=== PATIENT | female | born 1980 | race Caucasian/White ===

== ENCOUNTER → 2017-01-23 | Outpatient (CLI) | payer MEDICAID ==
[~2017-01-23] MED LIST: CLARITIN10 MG PO; IRON TABLETS325 MG PO; MOTRIN 400MG.400 MG PO; PERCOCET 5/3251 EACH PO; PRENATAL 1 PLUS1 TA2 PO; ZOFRAN ODT8 MG PO
[2017-01-23 10:32] LABS: HEMOGLOBIN 13.4 g/dL (12.2-16.2); LYMPH # 1.4 K/mm3 (0.7-4.5); LYMPH % 24.2 % (10-50.0)
[2017-01-23 12:27] LABS: BUN 13 mg/dL (7-18)
[2017-01-23 12:34] LABS: GFR (ESTIMATED) 114 ML/MIN (59-)
== END ==
LOC: LAB 10:08
PROVIDERS: Nurse Practitioner Obstetrics & Gynecology
DX: N39.3 Stress incontinence (female) (male) (principal); Z01.812 Encounter for preprocedural laboratory examination

== ENCOUNTER → 2017-01-25 | Day surgery (SDC) | payer MEDICAID ==
[~2017-01-25] VITALS: Ht 175.3 cm; Wt 70.3 kg
--- NOTE | 2017-01-25 11:24 | Operative Note ---
Procedure/Operative Record Procedure Date of procedure: 01/25/17 Pre-Op Dx: Genuine stress urinary incontinence Post-Op Dx: Genuine stress urinary incontinence Procedure performed: Tension-free vaginal tape Surgeon: Dr. Miguel A Aguero Ui Ux Web Developer(s): None Anesthesia: Mandeep Painter EBL (ml): 250 Clinical note: She is a 36-year-old lady who complains of loss of urine with laughing coughing sneezing. This was demonstrated in my office of the time of urodynamics. As result of that she was offered tension-free vaginal tape. The risks and benefits were discussed the patient prior to surgery. Operative findings: She had a normal-appearing bladder. The ureteric orifices were seen and appeared normal. Operative note: She was taken the operating room where LMA anesthesia was found be adequate. She was prepped and draped in normal sterile fashion in the lithotomy position. I injected approximately 20 mL of 1 percent Xylocaine with epinephrine along the anterior vaginal mucosa and out towards each pubic hairline subcutaneously. I then changed to a spinal needle and injected 0.5 percent ropivacaine in the space of Retzius and under the skin suprapubically. I grasped the vaginal mucosa with Allis clamps starting about a centimeter below the urethral orifice and going down approximately 2-1/2 more centimeters. I made a small incision within the 2 Allises and then grasped the edges of the vaginal mucosa with Allis clamps. Using Metzenbaum scissors I dissected bilaterally to each pubic rami. I then drained the bladder with a catheter and placed an obturator within the bladder. I pulled this to its ipsilateral side and then placed the LEFT side of the tape. I went under the pubic rami, through the urogenital diaphragm and through the space of Retzius and out through the skin. I then inspected the bladder with a 70 degree cystoscope. I noted that the trocar had passed through and through the bladder. I then repositioned the trocar and passed the bladder once again through the space Retzius and out through the skin. At this point in time was noted that the tape had been positioned correct. The bladder was hemostatic. I then pulled the tape through the skin. Similarly on the patient's RIGHT side I passed the trocar under the pubic rami through the urogenital diaphragm, through the space of Retzius and out through the skin. Once again inspected the bladder with a 70 degree cystoscope. The tape was in the correct position. There is no evidence of tape within the bladder. I inspected the other side as well and once again assured that there was no tape or bleeding within the bladder. I then pulled the tape through the skin and cut the trochars off. I grasped the outer sheath of the tension-free vaginal tape and placed a pack a forcep under the tape in the midline. I then pulled off the outer sheeting of the tape. I set tension on the tape. The tape was then cut off at the level of the skin and I lifted the skin so as to bury the tape under the skin. The vaginal mucosa was then closed using interrupted 2-0 Vicryl suture in a mattress fashion. The bladder was then drained. The skin was closed with Dermabond. The patient tolerated the procedure well and was taken to the recovery room in excellent condition. All sponge instrument and needle counts were correct. Estimate a blood loss was approximate 250 mL. Conplications: Tape was passed through and through the bladder then repositioned Specimens: None at 1121
--- NOTE | 2017-01-25 11:29 | Anesthesia Record ---
Anesthesia Record Part I Total IV fluids: 1100 EBL (ml): 250 Urine Output: 0 B/P: 98/59 % SaO2: 96 Pulse: 72 Resps: 16 Temp: 97.4 Patient is: Drowsy, Nasal O2, Stable Stable to PACU at: 1125 at 1128
--- NOTE | 2017-01-25 11:29 | Anesthesia Record ---
Anesthesia Record Part II Discharge time: 1155 Destination: Same day surgery PACU nurse assessment review? Yes Patient is: Stable Anesthesia complications? No at 1128
[2017-01-25 15:58] VITALS: BP 129/69
[2017-01-25 16:30] LABS: URINE BILIRUBIN - DIPSTICK NEGATIVE (NEG); URINE BLOOD 3+ (NEG)
[2017-01-25 16:46] LABS: URINE SQUAMOUS CELLS OCC #/hpf (0-5)
== END ==
LOC: SDC 07:41
PROVIDERS: Nurse Practitioner Obstetrics & Gynecology
DX: N39.3 Stress incontinence (female) (male) (principal)
CPT/HCPCS: C1771; J0131; J2405